=== PATIENT | male | born 1940 | race Caucasian/White ===

== ENCOUNTER 2019-06-13 06:35 | Day surgery (SDC) | payer MEDICARE ==
[2019-06-13] VITALS (11 sets, daily range): BP systolic 123–168; BP diastolic 43–98
[~2019-06-13] VITALS: Ht 177.8 cm; Wt 79.6 kg
[2019-06-13] MEDS ORDERED: LIDOcaine/PRILOcaine 5gm cream TP ONE (07:00)
[2019-06-13] MEDS ORDERED: normal saline 1,000 ML IV SCH (07:00)
[2019-06-13] MEDS ORDERED: diphenhydrAMINE 25mg capsule PO PRN (07:00)
[2019-06-13] MEDS ORDERED: LORazepam 0.5 MG tablet PO PRN (07:00)
[2019-06-13 07:20] LABS: BASOPHILS # (AUTO) 0.1 X10'3 (0-0.2); BASOPHILS % (AUTO) 0.8 % (0-1); EOSINOPHILS # (AUTO) 0.2 X10'3 (0-0.9); EOSINOPHILS % (AUTO) 2.3 % (0-6); HEMATOCRIT 43.8 % (42.0-52.0); HEMOGLOBIN 14.3 g/dl (14.0-17.9); LYMPHOCYTES % (AUTO) 50.3 % (21-51); MEAN CORPUSCULAR HEMOGLOBIN 30.8 PG (27.0-31.0); MEAN CORPUSCULAR HGB CONC 32.6 g/dL (33.0-36.5); MEAN CORPUSCULAR VOLUME 94.4 FL (78-98); MEAN PLATELET VOLUME 8.4 FL (7.4-10.4); MONOCYTES % (AUTO) 9.7 % (2-12); NEUTROPHILS # (AUTO) 3.7 X10'3 (1.8-7.7); NEUTROPHILS % (AUTO) 36.9 % (42-75); PLATELET COUNT 208 X10'3 (140-440); RED BLOOD COUNT 4.64 X10'6 (4.70-6.10); RED CELL DISTRIBUTION WIDTH 14.3 % (11.5-14.5)
[2019-06-13] MEDS ORDERED: midazolam 2 mg/2 ml injection ONE (07:22)
[2019-06-13] MEDS ORDERED: iohexol 350MG/ML 100ml bottle IV ONE ×3 (07:22→08:25)
[2019-06-13] MEDS ORDERED: verapamil 2.5 mg/ml inj IV ONE (07:22)
[2019-06-13] MEDS ORDERED: LIDOcaine 1% (10mg/ml)w/preservative injection 20ml MDV ONE (07:22)
[2019-06-13] MEDS ORDERED: heparin 1,000unit/ml 10ml vial 10 ML ONE (07:22)
[2019-06-13] MEDS ORDERED: fentaNYL/PF 50MCG/1 ML 2ML syringe ONE (07:22)
[2019-06-13] MEDS ORDERED: nitroGLYCERIN-Tridil 50MG/D5W 250 ML IV ONE (07:22)
[2019-06-13 07:27] LABS: ALBUMIN 4.1 G/DL (3.4-5.0); ANION GAP 6 (8-16); BLOOD UREA NITROGEN 21 MG/DL (7-18); BUN/CREATININE RATIO 19.4 (5.4-32.0); CALCIUM 9.3 MG/DL (8.5-10.1); CHLORIDE 107 MMOL/L (99-107); CREATININE 1.08 MG/DL (0.60-1.10); GLUCOSE 144 MG/DL (70-104); POTASSIUM 4.2 MMOL/L (3.5-5.1); SODIUM 140 MMOL/L (135-145); TOTAL CARBON DIOXIDE 26.7 MMOL/L (24-32); eGFR 66 ML/MIN
[2019-06-13] MEDS ORDERED: ASPI-920 PO (07:38)
[2019-06-13] MEDS ORDERED: ISOS30TA6 PO (07:38)
[2019-06-13] MEDS ORDERED: NITR0.4T48 SL (07:38)
[2019-06-13] MEDS ORDERED: OMEP-50 PO (07:38)
[2019-06-13] MEDS ORDERED: DILT240C88 PO (07:38)
[2019-06-13] MEDS ORDERED: METF-436 PO (07:38)
[2019-06-13] MEDS ORDERED: LOVA20TA2 PO (07:38)
[2019-06-13] MEDS ORDERED: QUIN20TA18 PO (07:38)
[2019-06-13] MEDS ORDERED: ticagrelor 90mg tablet ONE (08:21)
[2019-06-13] MEDS ORDERED: normal saline 1000ml 1,000 ML IV SCH ×2 (09:05→11:00)
[2019-06-13] MEDS ORDERED: OXAZEpam 15mg capsule PO PRN (09:05)
[2019-06-13] MEDS ORDERED: HYDROcodone/acetaminophen 5mg/325mg tablet PO PRN (09:05)
[2019-06-13] MEDS ORDERED: ondansetron/PF 4mg/2ml inj IV PRN (09:05)
[2019-06-13] MEDS ORDERED: HYDROcodone/acetaminophen 10/325mg tab PO PRN (09:05)
[2019-06-13] MEDS ORDERED: nitroGLYCERIN 0.4mg SUBLingual tab SL PRN (09:05)
[2019-06-13] MEDS ORDERED: proCHLORperazine 10 MG/2 ml inj IV PRN (09:05)
== END 2019-06-13 14:00 | disposition home or self-care (01) ==
LOC: MED 3N 06:35 → U 06:35
PROVIDERS: ATTEND Internal Medicine Interventional Cardiology
DX: R94.30 Abnormal result of cardiovascular function study, unspecified (principal); I25.10 Atherosclerotic heart disease of native coronary artery without angina pectoris; E11.9 Type 2 diabetes mellitus without complications; I10 Essential (primary) hypertension; E78.5 Hyperlipidemia, unspecified; I34.0 Nonrheumatic mitral (valve) insufficiency; G47.30 Sleep apnea, unspecified; G47.33 Obstructive sleep apnea (adult) (pediatric); Z87.891 Personal history of nicotine dependence
CPT/HCPCS: 36415; 80048; 85025; 85610; 93005; 93458; 99152; 99153; C1725; C1874; C1894; C9600; J1644; J2001; J2250; J3010; J7030; Q0163; Q9967; A4620; A5120; C1751; J3490